=== PATIENT | female | born 1970 | race Caucasian/White ===

== ENCOUNTER 2020-11-27 06:17 | Day surgery (SDC) | payer BC ==
[2020-11-27] MEDS ORDERED: Propofol 200 MG/20 ML SDV ONE (07:14)
[2020-11-27] MEDS ORDERED: Midazolam 1 MG/ML 2 ML SDV ONE (07:15)
[2020-11-27] MEDS ORDERED: fentaNYL 100 MCG/2 ML SDV ONE (07:15)
[2020-11-27] MEDS ORDERED: Sodium Chloride 0.9% 1,000 ML IV SCH (07:30)
--- NOTE | 2020-11-27 09:01 | OR ---
DATE OF PROCEDURE: 11/27/2020 SURGEON: Kojo Gruber MD PROCEDURE: Colonoscopy. FINDINGS: Normal colonoscopy. PREOPERATIVE DIAGNOSIS: Screening colonoscopy. POSTOPERATIVE DIAGNOSIS: Screening colonoscopy. RISKS: Risks, benefits, alternatives, and limitations including, but not limited to infection, bleeding, perforation, false positives, and false negatives were explained to the patient and she wished to proceed. PROCEDURE IN DETAIL: The patient was placed in left lateral decubitus position. Digital rectal exam was performed without abnormality. Scope was introduced and advanced atraumatically to the ileocecal valve. A photo was taken of the appendiceal orifice. Scope was brought back through the ascending, transverse, descending colon and retroflexed. No evidence of old or new blood. No masses. No polyps. No colitis. No diverticulosis. Greater than 8 minutes was spent removing the scope. The patient tolerated the procedure well. Approximately 90% of the luminal surface could be seen. Kojo Gruber MD /[id number]
[2020-11-27 09:17] VITALS: BP 107/70; PULSE 64
== END 2020-11-27 09:27 | disposition home or self-care (01) ==
LOC: JP.SDS 06:17
PROVIDERS: ATTEND Surgery
DX: Z12.11 Encounter for screening for malignant neoplasm of colon (principal)
CPT/HCPCS: 45378; J2250; J2704; J3010; J7030